=== PATIENT | male | born 1995 | race Caucasian/White ===

== ENCOUNTER 2022-11-03 18:58 | Emergency (ER) | payer OTHER ==
[2022-11-03 19:46] VITALS: BP 146/85; PULSE 63; RESP 16; TEMP 99; BMI 25.6
== END 2022-11-03 20:28 | disposition home or self-care (01) ==
LOC: FER 18:58
DX: S43.101A Unspecified dislocation of right acromioclavicular joint, initial encounter (principal); X58.XXXA Exposure to other specified factors, initial encounter; Y93.61 Activity, american tackle football
CPT/HCPCS: 73000-TC-RT-FY; 73030-TC-RT-FY; 99283-25